=== PATIENT | female | born 1980 | race Caucasian/White ===

== ENCOUNTER 2023-02-10 07:19 | Inpatient (IN) | payer MEDICAID ==
[~2023-02-10] VITALS: Ht 167.6 cm; Wt 90.7 kg
[2023-02-10] MEDS ORDERED: BUTORPHANOL TARTRATE 2 MG/ML VIAL IV PRN (10:30)
[2023-02-10] MEDS ORDERED: NALOXONE HCL 0.4 MG/ML 1ML VIAL IM PRN (10:30)
[2023-02-10] MEDS ORDERED: OXYTOCIN 30 UNITS/500ML NS PMX 500 ML IV SCH (10:30)
[2023-02-10] MEDS ORDERED: CARBOPROST TROMETHAMINE 250 MCG/ML AMPUL IM PRN (10:30)
[2023-02-10] MEDS ORDERED: MINERAL OIL 30ML BOTTLE PO NR (10:30)
[2023-02-10] MEDS ORDERED: METHYLERGONOVINE MALEATE 0.2 MG/ML IM PRN (10:30)
[2023-02-10] MEDS ORDERED: LIDOCAINE HCL 1% 20ML VIAL (Pyxis) INJ INFIL SCH (10:30)
[2023-02-10] MEDS ORDERED: MISOPROSTOL 100MCG TABLET VG SCH (10:30)
[2023-02-10] MEDS: LACTATED RINGERS 1,000 ML IV SCH ×2 (10:53→13:17)
[2023-02-10 11:31] LABS: BASOPHILS % 0.2 % (0.0-2.0); EOSINOPHILS % 0.4 % (0.0-5.0); HEMATOCRIT. 29.1 % (36.0-48.0); HEMOGLOBIN. 9.9 g/dL (12.0-16.0); LYMPHOCYTES % 17.7 % (20.0-50.0); MEAN CORPUSCULAR HEMOGLOBIN 30.8 pg (28.0-32.0); MEAN CORPUSCULAR VOLUME 90.4 fL (81.0-99.0); MEAN PLATELET VOLUME 9.2 fl (7.4-10.4); MONOCYTES % 7.9 % (2.0-8.0); NEUTROPHILS % 73.8 % (40.0-76.0); PLATELET 246 x1000/uL (130-400); RED BLOOD CELL COUNT 3.21 mill/uL (4.2-5.4); RED CELL DISTRIBUTION WIDTH 13.3 % (11.6-14.6)
[2023-02-10 11:35] LABS: CLARITY URINE CLOUDY (CLEAR); COLOR URINE DARK YELLOW (YELLOW); KETONES URINE NEGATIVE (NEGATIVE); LEUKOCYTE ESTERASE URINE TRACE (NEGATIVE); NITRITE URINE NEGATIVE (NEGATIVE); OCCULT BLOOD URINE NEGATIVE (NEGATIVE); PH URINE 6.5 (4.5-8.0); PROTEIN URINE 1+ (NEGATIVE); SPECIFIC GRAVITY URINE 1.024 (1.005-1.030)
[2023-02-10 11:43] LABS: INR 0.9; PARTIAL THROMBOPLASTIN TIME 29.2 sec (23.4-31.0); PROTHROMBIN TIME 10.1 sec (9.6-11.0)
[2023-02-10 11:56] LABS: *AMPHETAMINES SCREEN URINE NEGATIVE (NEGATIVE); *BARBITURATES SCREEN URINE NEGATIVE (NEGATIVE); *BENZODIAZEPINES SCREEN URINE NEGATIVE (NEGATIVE); *COCAINE SCREEN URINE NEGATIVE (NEGATIVE); CANNABINOID URINE SCREEN NEGATIVE (NEGATIVE); METHADONE URINE SCREEN NEGATIVE (NEGATIVE); OPIATES URINE SCREEN NEGATIVE (NEGATIVE); PHENCYCLIDINE URINE SCREEN NEGATIVE (NEGATIVE)
[2023-02-10 12:42] LABS: HEPATITIS B SURFACE ANTIGEN NEGATIVE
[2023-02-11] MEDS: BUTORPHANOL TARTRATE 1 MG/ML VIAL IV PRN ×3 (01:50→06:27)
[2023-02-11] MEDS: LACTATED RINGERS 1,000 ML IV SCH ×5 (04:22→16:48)
[2023-02-11] MEDS ORDERED: ROPIVACAINE HCL/PF EPIDURAL 200 ML EPI ONE (08:11)
[2023-02-11] MEDS ORDERED: ROPIVACAINE HCL/PF EPIDURAL 200 ML EPI SCH (08:11)
[2023-02-11] MEDS ORDERED: SODIUM BICARBONATE 8.4% MEQ/ML 50ML VIAL IV ONE (17:37)
[2023-02-11] MEDS ORDERED: MORPHINE SULFATE/PF 1MG/ML 10ML AMP ONE (18:11)
[2023-02-11] MEDS ORDERED: ONDANSETRON HCL 4MG/2ML INJ ONE (18:14)
[2023-02-11] MEDS ORDERED: DEXAMETHASONE 4MG/ML 1ML VIAL ONE (18:14)
[2023-02-11] MEDS ORDERED: CEFAZOLIN SODIUM 1000MG/VIAL ONE (18:14)
[2023-02-11] MEDS ORDERED: MIDAZOLAM HCL 2 MG/2 ML VIAL ONE (18:27)
[2023-02-11] MEDS ORDERED: NALOXONE HCL 0.4 MG/ML 1ML VIAL IV PRN (18:45)
[2023-02-11] MEDS ORDERED: FENTANYL CITRATE/PF 50MCG/ML 2ML VIAL IV PRN (18:45)
[2023-02-11] MEDS ORDERED: MORPHINE SULFATE 10 MG/ML CPJ IV PRN (18:45)
[2023-02-11] MEDS ORDERED: MORPHINE SULFATE 2 MG/ML CPJ (NOT FOR IM USE) IV PRN (18:45)
[2023-02-11] MEDS ORDERED: LANOLIN OINT 7GM TUBE TOP PRN (19:15)
[2023-02-11] MEDS ORDERED: ONDANSETRON HCL 4MG/2ML INJ IV PRN (19:15)
[2023-02-11] MEDS ORDERED: OXYTOCIN 30 UNITS/500ML NS PMX 500 ML IV SCH (19:15)
[2023-02-11] MEDS ORDERED: BISACODYL 10MG SUPP PR PRN (19:15)
[2023-02-11] MEDS ORDERED: DIPHENHYDRAMINE 25MG CAPSULE PO PRN (19:15)
[2023-02-11] MEDS ORDERED: RHO(D) IMMUNE GLOBULIN 300 MCG/SYR IM PRN (19:15)
[2023-02-11 20:30] VITALS: BP 123/66
[2023-02-11 21:30] VITALS: BP 127/73
[2023-02-11 22:30] VITALS: BP 122/68
[2023-02-12] MEDS: KETOROLAC 30MG/ML VIAL IV PRN ×2 (02:04→14:14)
[2023-02-12 04:00] VITALS: BP 99/49
[2023-02-12 07:23] LABS: BASOPHILS % 0.1 % (0.0-2.0); EOSINOPHILS % 0.1 % (0.0-5.0); HEMATOCRIT. 28.6 % (36.0-48.0); HEMOGLOBIN. 9.4 g/dL (12.0-16.0); LYMPHOCYTES % 8.2 % (20.0-50.0); MEAN CORPUSCULAR VOLUME 91.3 fL (81.0-99.0); MEAN PLATELET VOLUME 9.3 fl (7.4-10.4); MONOCYTES % 6.2 % (2.0-8.0); NEUTROPHILS % 85.4 % (40.0-76.0); PLATELET 227 x1000/uL (130-400); RED BLOOD CELL COUNT 3.13 mill/uL (4.2-5.4); RED CELL DISTRIBUTION WIDTH 13.7 % (11.6-14.6)
[2023-02-12 08:00] VITALS: BP 106/61
[2023-02-12] MEDS: PRENATAL VIT/FE FUMARATE/FA TABLET PO SCH (08:55)
[2023-02-12 12:00] VITALS: BP 109/55
[2023-02-12 16:00] VITALS: BP 117/69
[2023-02-12 19:15] VITALS: BP 110/54
[2023-02-12] MEDS: HYDROCODONE/ACETAMINOPHEN 5/325MG TABLET PO PRN (20:03)
[2023-02-12] MEDS: DOCUSATE SODIUM 100MG CAPSULE PO SCH (20:03)
[2023-02-13] MEDS: HYDROCODONE/ACETAMINOPHEN 5/325MG TABLET PO PRN (01:29)
[2023-02-13] MEDS: IBUPROFEN 400MG TABLET PO PRN ×2 (03:56→22:10)
[2023-02-13 04:00] VITALS: BP 91/68
[2023-02-13 08:15] VITALS: BP 126/89
[2023-02-13] MEDS: ACETAMINOPHEN WITH CODEINE 300/30MG TABLET PO PRN ×3 (08:15→18:13)
[2023-02-13] MEDS: PRENATAL VIT/FE FUMARATE/FA TABLET PO SCH (08:15)
[2023-02-13 08:18] LABS: BASOPHILS % 0.1 % (0.0-2.0); EOSINOPHILS % 0.4 % (0.0-5.0); HEMOGLOBIN. 9.8 g/dL (12.0-16.0); LYMPHOCYTES % 10.2 % (20.0-50.0); MEAN CORPUSCULAR HEMOGLOBIN 30.1 pg (28.0-32.0); MEAN CORPUSCULAR VOLUME 91.8 fL (81.0-99.0); MEAN PLATELET VOLUME 8.8 fl (7.4-10.4); MONOCYTES % 6.1 % (2.0-8.0); NEUTROPHILS % 83.2 % (40.0-76.0); PLATELET 236 x1000/uL (130-400); RED BLOOD CELL COUNT 3.27 mill/uL (4.2-5.4); RED CELL DISTRIBUTION WIDTH 14.1 % (11.6-14.6)
[2023-02-13 12:00] VITALS: BP 112/67
[2023-02-13 16:00] VITALS: BP 116/62
[2023-02-13 19:05] VITALS: BP 120/64
[2023-02-13] MEDS: DOCUSATE SODIUM 100MG CAPSULE PO SCH (20:19)
[2023-02-14 02:52] VITALS: BP 132/83
[2023-02-14] MEDS: ACETAMINOPHEN WITH CODEINE 300/30MG TABLET PO PRN ×2 (02:52→10:10)
[2023-02-14 08:00] VITALS: BP 128/76
[2023-02-14 10:10] VITALS: BP 128/76
[2023-02-14] MEDS: PRENATAL VIT/FE FUMARATE/FA TABLET PO SCH (10:10)
[2023-02-14] MEDS ORDERED: FERR325T6 MT (10:21)
[2023-02-14] MEDS ORDERED: IBUP-2028 PO (10:21)
[2023-02-14] MEDS ORDERED: MULT-1116 MT (10:21)
== END 2023-02-14 12:15 | disposition home or self-care (01) | DRG 540 ==
LOC: 8 EST LDRP 07:19 → OBSVTOIN 07:19 → 8EST 02-11 20:30
PROVIDERS: ADMIT Obstetrics & Gynecology; ATTEND Obstetrics & Gynecology
PROC: 10D00Z1 Extraction of Products of Conception, Low, Open Approach (ICD-10-PCS; principal; 2023-02-11)
DX: O41.03X0 Oligohydramnios, third trimester, not applicable or unspecified (principal); O99.02 Anemia complicating childbirth; Z20.822 Contact with and (suspected) exposure to COVID-19; Z37.0 Single live birth; Z3A.39 39 weeks gestation of pregnancy; Z86.19 Personal history of other infectious and parasitic diseases
CPT/HCPCS: 36415; 76805; 76818; 80305; 81003; 85025; 86592; 86703; 86762; 86850; 86900; 87340; 87426; 88307; 99281; J0595; J0690; J1100; J1885; J2250; J2274; J2405; J2795; J3490; J7120; A4315; J2590

== ENCOUNTER 2023-07-06 05:02 | Emergency (ER) | payer MEDICAID ==
[~2023-07-06] VITALS: Ht 165.1 cm; Wt 70.0 kg
[~2023-07-06 05:02] MED LIST: FERR325T6 MT; IBUP-2028 PO; MULT-1116 MT
[2023-07-06 05:05] VITALS: O2SAT 95
[2023-07-06 09:30] VITALS: BP 132/77; PULSE 78; RESP 16; TEMP 97.5
== END 2023-07-06 09:30 | disposition home or self-care (01) ==
LOC: ER 05:02
DX: Z00.00 Encounter for general adult medical examination without abnormal findings (principal)
CPT/HCPCS: 99283